=== PATIENT | male | born 1985 | race Caucasian/White ===

== ENCOUNTER 2017-07-20 13:37 | Emergency (ER) | payer SELFPAY ==
[~2017-07-20] VITALS: Ht 182.9 cm; Wt 83.0 kg
[2017-07-20 13:48] VITALS: BP 115/56; PULSE 63; RESP 18; TEMP 97.8; O2SAT 98
[2017-07-20] MEDS ORDERED: BACT800T5 PO (14:52)
--- NOTE | 2017-07-20 14:57 | PD ---
HPI Chief Complaint: Skin Problem Time Seen by Provider: 14:50 Travel History International Travel<30 days: No Contact w/Intl Traveler<30days: No Traveled to known affect area: No History of Present Illness HPI 4-year-old male presents to the emergency room for evaluation of a red, sore, swollen area to his left anterior thigh for the past 2 days. States it started off as a small pimple and grew rapidly today. Denies itchiness. He does not remember getting bitten by anything. Denies fever, chills, nausea, vomiting. Reports history of MRSA. [facility] Past Medical History Medical History: Denies Significant Hx ADHD: Yes Asthma: No Blood Disorders: No Anxiety: Yes Depression: Yes Heart Rhythm Problems: No Cancer: No Cardiovascular Problems: No High Cholesterol: No Chemotherapy: No Chest Pain: No Congestive Heart Failure: No COPD: No Diabetes: No Diminished Hearing: No Endocrine: No Genitourinary: No Immune Disorder: No Musculoskeletal: No Neurologic: No Psychiatric: Yes (bipolar) Reproductive: No Respiratory: No Immunizations Current: Yes Radiation Therapy: No Sleep Apnea: No Thyroid Disease: No Tetanus Vaccination: > 5 Years Influenza Vaccination: No Past Surgical History Other Surgery: Yes (L cheek repair -plate) Social History Alcohol Use: Yes (occ) Tobacco Use: No (dip) Substance Use: No Allergies-Medications (Allergen,Severity, Reaction): Coded Allergies: No Known Allergies (Unverified , 07/20/17) Reported Meds & Prescriptions Reported Meds & Active Scripts Active Bactrim DS (Sulfamethoxazole-Trimethoprim) 800-160 Mg Tab 1 Tab PO BID Review of Systems Except as stated in HPI: all other systems reviewed are Neg Physical Exam Narrative GENERAL: Well-nourished, well-developed male in no acute distress. Afebrile. Ambulatory. SKIN: Focused skin assessment warm/dry. There is an indurated area in the left anterior thigh which measures about 3 cm in diameter. It is fluctuant but there is no pointing or drainage. There is a zone of inflammation around it but no lymphangitis. HEAD: Normocephalic. EYES: No scleral icterus. No injection or drainage. NECK: Supple, trachea midline. No JVD or lymphadenopathy. CARDIOVASCULAR: Regular rate and rhythm without murmurs, gallops, or rubs. RESPIRATORY: Breath sounds equal bilaterally. No accessory muscle use. PSYCHIATRIC: No delusional thought processes. No hallucinations. Data Data Last Documented VS Vital Signs Date Time Temp Pulse Resp B/P (MAP) Pulse Ox O2 Delivery O2 Flow Rate FiO2 07/20/17 13:48 97.8 63 18 115/56 (75) 98 MDM Medical Decision Making Medical Screen Exam Complete: Yes Emergency Medical Condition: Yes Medical Record Reviewed: Yes Differential Diagnosis Abscess, folliculitis, cellulitis Narrative Course 31-year-old male presents to the emergency room for evaluation of an abscess to his left anterior thigh for the past 2 days. No systemic signs of infection. Patient is afebrile and well-appearing in the emergency room. Physical exam reveals a 4 cm abscess to the left anterior thigh without lymphangitis. Abscess was drained, see procedure for details. Patient discharged with prescription for Bactrim and told to follow-up with a primary care physician or return for worsening symptoms. He understands and agrees to plan. Procedures Procedure Narrative INCISION AND DRAINAGE OF ABSCESS: The area was prepped and was sterilely draped. A subcutaneous wheal of 1% lidocaine with a total number 3 mL was used to anesthetize the area properly. A number 11 scalpel was used to make a 0.5 cm incision across the area of the abscess. The abscess was drained, complex loculations were broken down, and irrigated with normal saline. Sterile dressing applied. Diagnosis Primary Impression: Abscess of left thigh Referrals: Primary Care Physician Additional Instructions: Rest and drink plenty of fluids. Take Bactrim as directed, until gone. Follow up with a primary care physician. Return to emergency room for worsening symptoms, as discussed. Scripts Sulfamethoxazole-Trimethoprim (Bactrim DS) 800-160 Mg Tab 1 TAB PO BID for Infection, #20 TAB 0 Refills Prov: Vadim Stokes MD 07/20/17 Disposition: 01 DISCHARGE HOME Condition: Stable Samanta Samano Jul 20, 2017 14:57
== END 2017-07-20 15:40 | disposition home or self-care (01) ==
LOC: PHEFT 13:37
DX: L02.416 Cutaneous abscess of left lower limb (principal)
CPT/HCPCS: 10061